=== PATIENT | female | born 1975 | race Caucasian/White ===

== ENCOUNTER 2019-08-02 09:17 | Emergency (ER) | payer BC ==
--- OUTSIDE RECORDS SUMMARY | 2019-08-02 09:22 | XMS REPORT | Continuity of Care Document ---
:1975 External Reference #:[id number] Author Name Kim Yoder MD (transmitted by agent of provider Dhara Padron) Address [address], [place] [address] Care Team Providers Name Role Phone Kim Yoder MD - Internal Medicine Care Team Information [employer] Problems Description No Information Available Social History Type Date Description Comments Sex Unknown ETOH Use Occasionally consumes alcohol Tobacco Use Start: Unknown Patient has never smoked Recreational Drug Use Denies Drug Use Smoking Status Reviewed: 07/28/19 Patient has never smoked Exercise Type/Frequency Exercises regularly Allergies, Adverse Reactions, Alerts Description No Known Drug Allergies Medications Active Medications SIG Qnty Indications Ordering Provider Date Advil 2 tabs by mouth Unknown 200mg Tablets daily as needed Immunizations Description No Information Available Vital Signs Date Vital Result Comment 07/28/2019 10:09am Height 64 inches 5'4" Weight 145.00 lb Heart Rate 72 /min BP Systolic Sitting 97 mmHg BP Diastolic Sitting 65 mmHg Body Temperature 97.4 F O2 % BldC Oximetry 99 % BMI (Body Mass Index) 24.9 kg/m2 01/18/2019 9:03am Height 64 inches 5'4" Weight 148.75 lb Heart Rate 80 /min BP Systolic 98 mmHg BP Diastolic 56 mmHg Body Temperature 97.2 F O2 % BldC Oximetry 99 % BMI (Body Mass Index) 25.5 kg/m2 Results Description No Information Available Procedures Date Code Description Status 03/29/2019 21670340 Mammogram Completed Medical Devices Description No Information Available Encounters Description No Information Available Assessments Date Code Description Provider 07/28/2019 R22.1 Localized swelling, mass and lump, neck Kim Yoder MD Plan of Treatment No Information Available Functional Status Description No Information Available Mental Status Description No Information Available Referrals Description No Information Available
[2019-08-02 09:25] VITALS: BP 103/71
--- NOTE | 2019-08-02 09:34 | UC ---
Back Pain HPI - HPI Summary HPI Summary: 43-year-old female who has occasional "flareups" of low back pain. She has a job where she is sitting a lot and her low back also the left side started becoming sore last week. She's done some yoga exercises to improve the pain. She states today it's much better than it has been. She denies any saddle anesthesia and no numbness or tingling in her extremities. She denies any urinary symptoms. She had an upper respiratory illness last week but that has resolved. He also states she has some left sided neck swelling which she and her physician believe is thyroid related. The patient has a follow-up appointment with her primary care provider regarding that issue. - History of Current Complaint Chief Complaint: UCBackPain Stated Complaint: LOWER BACK PAIN Time Seen by Provider: 08/02/19 09:22 Hx Obtained From: Patient Hx Last Menstrual Period: 07/18/19 ?: No Onset/Duration: Gradual Onset, Lasting Days, Other - Much improved today. Timing: Intermittent Severity Initially: Moderate Severity Currently: Mild Pain Intensity: 7 Character: Spasmodic Aggravating Factor(s): Movement, Lifting, Bending Alleviating Factor(s): Rest Associated Signs And Symptoms: Positive: Negative. Negative: Weakness, Numbness , Tingling, Abdominal Pain, Flank Pain, Bladder Incontinence, Bowel Incontinence - Allergies/Home Medications Allergies/Adverse Reactions: Allergies Allergy/AdvReac Type Severity Reaction Status Date / Time No Known Allergies Allergy Verified 08/02/19 09:26 PMH/Surg Hx/FS Hx/Imm Hx Previously Healthy: Yes - Surgical History Surgical History: Yes Surgery Procedure, Year, and Place: tonsillectomy - Family History Known Family History: Positive: None, Cardiac Disease - Social History Occupation: Employed Full-time Alcohol Use: Occasionally Substance Use Type: None Smoking Status (MU): Never Smoked Tobacco Review of Systems All Other Systems Reviewed And Are Negative: Yes Motor: Positive: Negative Neurovascular: Positive: Negative Musculoskeletal: Positive: Other: - Mild soreness and muscle strain left lower back. States that's improved today. Neurological: Negative: Headache, Weakness, Paresthesia, Numbness Is Patient Immunocompromised?: No Physical Exam Triage Information Reviewed: Yes Appearance: Well-Appearing, No Pain Distress, Well-Nourished Vital Signs: Initial Vital Signs Temp 98 F 08/02/19 09:22 Pulse 89 08/02/19 09:22 Resp 18 08/02/19 09:22 BP 103/71 08/02/19 09:22 Pulse Ox 100 08/02/19 09:22 Vital Signs Reviewed: Yes Eyes: Positive: Conjunctiva Clear ENT: Positive: Hearing grossly normal, Pharynx normal, TMs normal, Uvula midline , Other Neck: Positive: Supple, Nontender, No Lymphadenopathy, Other: - The patient does have mild visible swelling to the left side of her neck however I do not feel any palpable lump. Respiratory: Positive: Lungs clear, Normal breath sounds, No respiratory distress, No accessory muscle use Cardiovascular: Positive: RRR, No Murmur, Pulses Normal, Brisk Capillary Refill Musculoskeletal Exam: Normal Musculoskeletal: Positive: Other: - Mild tenderness on palpation left lower back paraspinal muscles. Patient can replicate the pain with movement. No bruising, erythema, deformity or swelling. Negative straight leg raise Neurological Exam: Normal Psychological Exam: Normal Skin Exam: Normal Back Pain Course/Dx - Course Course Of Treatment: Patient is comfortable here. Her back pain is improving however she would like a prescription for Flexeril. She is to avoid movements that cause pain and follow-up with her doctor if any worsening symptoms. - Differential Dx/Diagnosis Provider Diagnosis: Low back strain Discharge ED - Sign-Out/Discharge Documenting (check all that apply): Patient Departure All imaging exams completed and their final reports reviewed: No Studies - Discharge Plan Condition: Good Disposition: HOME Prescriptions: Cyclobenzaprine TAB* [Flexeril 10 MG TAB*] 10 mg PO TID PRN #15 tab PRN Reason: Pain - Moderate Patient Education Materials: Low Back Strain (ED) Referrals: Kim Yoder MD [Primary Care Provider] - Additional Instructions: Avoid movements that cause pain. Avoid lifting. No drinking alcohol, driving or operating machinery while taking the Flexeril. You may take Tylenol every 4 hours and alternate with Motrin every 8 hours as well for pain. Follow-up with your primary care provider if no improvement in 3 or 4 days. - Billing Disposition and Condition Condition: GOOD Disposition: Home
== END 2019-08-02 09:36 | disposition home or self-care (01) ==
LOC: UCEAST 09:17
DX: S39.012A Strain of muscle, fascia and tendon of lower back, initial encounter (principal); X50.1XXA Overexertion from prolonged static or awkward postures, initial encounter; Y93.89 Activity, other specified; Y92.89 Other specified places as the place of occurrence of the external cause; Y99.0 Civilian activity done for income or pay
CPT/HCPCS: 99212; G0463

== ENCOUNTER 2022-12-13 05:54 | Inpatient (IN) ==
[2022-12-13] MEDS ORDERED: Lactated Ringers 1000 ml BAG 1,000 ML IV SCH (06:00)
[2022-12-13] MEDS ORDERED: Buffered Lidocaine 1% SYRIN 1 ml INTRADERM ONE (06:00)
[2022-12-13] MEDS ORDERED: Ondansetron 4 mg VIAL 2 MG/ML 2 ml VIAL ONE ×3 (06:09→13:58)
[2022-12-13] MEDS ORDERED: Heparin 5000 UNITS/ML 1 mL VIAL ONE (06:09)
[2022-12-13] MEDS ORDERED: Scopolamine 1 mg/72hr PATCH ONE (06:09)
[2022-12-13] MEDS ORDERED: Dexamethasone IV 4 MG/ML VIAL 1 ml VIAL ONE (06:09)
[2022-12-13] MEDS ORDERED: ceFAZolin 2 GM in NS PREMIX 2 GM/100 ML BAG IVPB ONE (06:10)
[2022-12-13] MEDS ORDERED: ISOSULFAN BLUE 1% 5 ML VIAL 10 MG/ML SUBCUT ONE (07:00)
[2022-12-13] MEDS ORDERED: Bupivacaine 0.25% SDV 30 ML ONE (07:00)
[2022-12-13] MEDS ORDERED: Povidone Iodine 5% OPTH 30 ML BTL ONE (07:00)
[2022-12-13] MEDS ORDERED: Bupivacaine 0.5% SDV PF 30ML VIAL ONE (07:00)
[2022-12-13] MEDS ORDERED: Gentamicin ADULT 40 MG/ML VIAL (2 ML VIAL = 80 MG) ONE (07:00)
[2022-12-13] MEDS ORDERED: ceFAZolin VIAL VIAL ONE (07:01)
[2022-12-13] MEDS ORDERED: Propofol 10 MG/ML 20 ML BTL ONE (07:04)
[2022-12-13] MEDS ORDERED: Lidocaine 2% PF 5 ML VIAL ONE (07:04)
[2022-12-13] MEDS ORDERED: Phenylephrine 40 mcg/mL 10mL (400mcg) SYRINGE ONE ×4 (07:04→11:57)
[2022-12-13] MEDS ORDERED: Rocuronium 50 mg VIAL 10 mg/ml 5 ml VIAL (50 mg) ONE (07:05)
[2022-12-13] MEDS ORDERED: fentaNYL 250 mcg/5 ml 50 MCG/ML 5 ml VIAL (250 MCG) ONE (07:05)
[2022-12-13] MEDS ORDERED: Midazolam 2 mg/2 ml VIAL 1 mg/ml 2 ml VIAL (2 mg) ONE (07:05)
[2022-12-13] MEDS ORDERED: Naloxone 0.4 mg VIAL 0.4 mg/ml 1 ml VIAL IV PRN (09:09)
[2022-12-13] MEDS ORDERED: HYDROmorphone 1 MG/1 ML SYRINGE IV PRN (09:09)
[2022-12-13] MEDS ORDERED: fentaNYL 100 mcg/2 ml 50 MCG/ML VIAL IV PRN (09:09)
[2022-12-13] MEDS ORDERED: Prochlorperazine 5 mg/ml 2 ml VIAL (10 mg) IV PRN (09:09)
[2022-12-13] MEDS ORDERED: HYDROmorphone 0.5 MG/0.5 ML SYRINGE ONE ×2 (09:38→12:57)
[2022-12-13] MEDS ORDERED: Benzocaine/Menthol LOZ PO PRN (12:23)
[2022-12-13] MEDS ORDERED: Morphine 2 MG/ML SYRINGE IV PRN (12:24)
[2022-12-13] MEDS ORDERED: NS 0.9% 1000 ml BAG 1,000 ML IV SCH (12:30)
[2022-12-13] MEDS: HYDROcodone/ACETAMIN 5/325 mg TAB PO PRN ×2 (15:40→22:46)
[2022-12-13] MEDS ORDERED: HYDROcodone/ACETAMIN 5/325 mg TAB ONE (15:40)
[2022-12-13] MEDS: Heparin 5000 UNITS/ML 1 mL VIAL SUBCUT SCH (17:18)
[2022-12-13] MEDS: ceFAZolin 2 GM PREMIX 2 GM/50 ML BAG IVPB SCH (19:43)
[2022-12-14] MEDS: Heparin 5000 UNITS/ML 1 mL VIAL SUBCUT SCH ×2 (01:35→09:12)
[2022-12-14] MEDS: ceFAZolin 2 GM PREMIX 2 GM/50 ML BAG IVPB SCH ×2 (05:23→11:21)
[2022-12-14 11:04] VITALS: BP 101/68
[2022-12-14] MEDS: HYDROcodone/ACETAMIN 5/325 mg TAB PO PRN (13:12)
== END 2022-12-14 14:00 | disposition home or self-care (01) | DRG 362 ==
LOC: AA 05:54
PROVIDERS: ADMIT Student in an Organized Health Care Education/Training Program; ATTEND Student in an Organized Health Care Education/Training Program